=== PATIENT | male | born 1945 | race Caucasian/White ===

== ENCOUNTER 2022-01-13 10:55 | Day surgery (SDC) | payer MEDICARE, SELFPAY ==
[2022-01-13] VITALS (24 sets, daily range): BP systolic 101–150; BP diastolic 39–88; PULSE 53–70; RESP 12–56; TEMP 35.8–37.7; O2SAT 92–100; BMI 33.5
--- NOTE | 2022-01-13 11:27 | CRLHL7_ITS ---
For Patients: As a result of the Cures Act, medical imaging exams and procedure reports are released immediately into your electronic medical record. You may view this report before your referring provider. If you have questions, please contact your health care provider. Indication: Postop. Technique: Right knee, 2 views. Comparison: None. Findings: Bones: Postsurgical changes from total right knee arthroplasty. The orthopedic hardware appears to be in normal alignment, without evidence of hardware fracture.. Joint spaces: Gas and fluid within the joint space, expected in postoperative setting.. Soft tissues: Soft tissue swelling surrounding the knee.. Impression: Expected postsurgical changes from total right knee arthroplasty. Orthopedic hardware appears to be in normal alignment. Dictated by Paty Diamond MD @ 01/13/2022 3:50:28 PM (Electronically Signed)
[2022-01-13] MEDS: OXYCODONE (CR) 10 MG TAB.ER.12H PO (11:45)
[2022-01-13] MEDS: ACETAMINOPHEN 500 MG TABLET 1000 MG PO ×2 (11:45→18:17)
[2022-01-13] MEDS: CELECOXIB 200 MG CAPSULE PO ×2 (11:45→21:16)
[2022-01-13] MEDS: LACTATED RINGERS 1000 ML 1,000 ML 100 ML IV ×2 (12:00→13:00)
[2022-01-13] MEDS: MIDAZOLAM HCL 1 MG/ML inj IVP (12:01)
[2022-01-13] MEDS: fentaNYL 100 MCG/2 ML inj IVP (12:01)
--- NOTE | 2022-01-13 12:04 | SUR.PREOP ---
TIME?OUT:?1200 PT/RN/MDA?VERIFICATION?OF?SURGICAL?SITE,?PROCEDURE,?AND?CONSENT OBTAINED?PRIOR?TO?INVASIVE?PROCEDURE. all in agreement.
--- NOTE | 2022-01-13 12:11 | P.NB_ITS ---
Nerve Block Nerve Block Time Seen by Provider: 12:00 Date Seen: 01/13/22 Type of block requested by surgeon for post-operative analgesia: geniculars Side: right Time out performed: Yes Verification of patient name: Yes Verification of date of : Yes Site marking: site marked Name of person performing procedure: Conner Continuous monitoring Was continuous monitoring of O2 sat, B/P, it technical architect, recorded every 15 minutes?: Yes Procedure Checklist: sterile prep, needles and gloves Medications given in 5ml increments after negative aspiration: Ropivicaine %: 0.5 mL: 9 Needle gauge: 25 Patient tolerated procedure well: Yes
--- NOTE | 2022-01-13 12:11 | W.PM.NB ---
Nerve Block Nerve Block Time Seen by Provider: 12:00 Type of block requested by surgeon for post-operative analgesia: adductor canal Side: right Time out performed: Yes Verification of patient name: Yes Verification of date of : Yes Site marking: site marked Name of person performing procedure: Conner Assistants, if any: Shelbymbemeli Continuous monitoring Was continuous monitoring of O2 sat, B/P, threat monitoring analyst, recorded every 15 minutes?: Yes Procedure Checklist: sterile prep, needles and gloves Ultrasound guided. Images saved: Yes Medications given in 5ml increments after negative aspiration: Ropivicaine %: 0.5 mL: 20 Needle gauge: 22 Decadron (mg): 10 Precedex (mcg): 25 Patient tolerated procedure well: Yes Additional comments: Needle noted adjacent to nerve
[2022-01-13] MEDS: CEFAZOLIN 2 GM INJ IVP (12:49)
--- NOTE | 2022-01-13 14:12 | P.ORPRC_ITS ---
Procedure Note Procedure: PREOPERATIVE DIAGNOSIS: 1. Right knee osteoarthritis, primary, severe POSTOPERATIVE DIAGNOSIS: 1. Right knee osteoarthritis, primary, severe PROCEDURE: 1. Right total knee arthroplasty SURGEON: George Cabello MD. MARKETING OFFICER: Maurice Downey PA-C - Of note, a skilled assistant professor of dietetics was critical for this case to aid in patient positioning, tissue retraction, limb manipulation/positioning, and closure. ANESTHESIA: Spinal anesthetic IMPLANTS: DePuy J&J all cemented TKA - Attune PS femur size 7, size 5 tibia, 5 mm poly spacer, 30 mm patella TOURNIQUET: 90 min at 300 torr EBL: 50 ml COMPLICATIONS: None evident INDICATIONS: The patient is a pleasant 76-year-old male who has experienced severe right knee pain and difficulty bearing weight. Workup included x-rays which revealed severe osteoarthrosis in the knee. Given the deformity, the dysfunction, and the pain, as well as the failure of nonoperative management, recommendation was made for surgery. FINDINGS: Small effusion upon entering joint. Full-thickness chondral loss medial compartment broadly. Substantial chondromalacia patellofemoral and lateral compartments as well. Tricompartmental osteophytes. 1 medium 10 mm loose body seen within the lateral gutter. DESCRIPTION OF PROCEDURE: Following a thorough discussion of risks, benefits, and alternatives consent was obtained and the right knee was marked. The patient was brought to the operating room and placed supine on the operating table. Induction of anesthesia was undertaken. 2 g IV Ancef and 1 g tranexamic acid was administered within 1 hr of incision preoperatively. Proper time-out was performed identifying proper patient, site, procedure. The operative extremity was prepped and draped in the appropriate sterile fashion using ChloraPrep after the patient was positioned supine with all bony prominences well padded. A longitudinal, anterior, midline skin incision was made starting approximately 3cm proximal to the superior pole of the patella and advanced distal to the tibial tubercle. A median parapatellar arthrotomy was created. A medial subperiosteal sleeve was created with knife, chang elevator and curved osteotome. The retropatellar fatpad was resected and the synovium in the suprapatellar pouch excised to visualize the anterior femoral cortex. Femoral preparation was performed via an intramedullary guide. Step drill allowed access into the femoral canal. The distal cutting guide was placed with 5? of valgus and 11 mm cut on the distal femur due to mild to moderate flexion contracture Femur was sized using a posterior referencing guide in 3? of external rotation. This found have a best fit with the sizing noted above. The 4 in 1 cutting block was then placed, and the distal femur shaped accordingly. The box cut was then created and the trial implant inserted to confirm appropri ate fit. We turned our attention to the proximal tibia. Extramedullary guide was utilized for cutting with the goal of being 90 degree cut from the mechanical axis of the tibia in the varus/valgus plane utilizing tibial crest as the primary alignment. Initially a 2 mm resection was performed from the medial tibial plateau. Ultimately, balancing was achieved in both flexion and extension in both varus and valgus. The knee was able to achieve full extension as well comfortably. The patella was initially measured and found have a thickness of 24 mm. It was resected back to approximately 14 mm. It was sized to be a best fit with as noted above. This was drilled, trial placed. All trials were placed and found to have an excellent stability and balance. At this stage, trial implants were removed, the knee was thoroughly irrigated with normal saline, and the cement was mixed. After irrigation, the knee was thoroughly dried, and cement placed, with the real tibial and femoral implants placed along with the patella. Trial poly spacer was placed and confirmed to have excellent range of motion and full extension, and the real poly spacer opened and inserted. All extra cement was removed, and a 3 min Betadine soak performed. Finally, a final irrigation round with normal saline was performed. Closure performed with 0 Vicryl and #0 Stratafix for the quad tendon/retinaculum. 2-0 Vicryl for the subcutaneous and 4-0 Stratafix for subcuticular closure. Dressings were applied and the patient was awoken from anesthesia after the tourniquet deflated and transferred the PACU in stable condition. A skilled assistant professor of dietetics was critical for this case to aid in patient positioning, tissue retraction, bone exposure, limb manipulation/positioning, patient safety, and closure. PLAN: 1. Weight bear as tolerated operative extremity. 2. 23 hr perioperative antibiotics. 3. Ice. 4. PT/OT consults for ambulation assistance/mobility education. 5. Social work consult for discharge planning. 6. DVT prophylaxis with at SCDs, Jared Hose, and aspirin twice daily. Anesthesia: spinal Surgeon: George Cabello Teacher Adventure Education: Maurice Downey
--- NOTE | 2022-01-13 14:14 | P.ANBPRC_ITS ---
PFSH PFS Medical History Coronary artery disease without angina pectoris Hyperlipidemia Hypertension Post-traumatic osteoarthritis of right knee Surgical History (Updated 01/12/22 @ 08:50 by Rosalba Jensen CMA) H/O heart artery stent (~1999) Social History (Updated 01/12/22 @ 08:51 by Rosalba Jensen CMA) Smoking Status: Former smoker Do you use any of these nicotine containing products: None Second hand tobacco smoke exposure: No How often do you have a drink containing alcohol: 2-4 times a month AUDIT-C Alcohol total score: 2 Non-prescribed substance use: denies use Meds Home Medications and Allergies Home Medications Medication Instructions Recorded Confirmed Type atenolol 25 mg tablet 25 mg PO DAILY tab 01/11/22 01/13/22 History atorvastatin 40 mg tablet 40 mg PO HS tab 01/11/22 01/13/22 History lisinopril 10 mg tablet 10 mg PO DAILY tab 01/11/22 01/13/22 History Allergies Allergy/AdvReac Type Severity Reaction Status Date / Time No Known Allergies Allergy Unknown Verified 01/12/22 08:48 Results Vital Signs Vital Signs: Last Vital Signs Temp 99.8 F H 01/13/22 12:00 Pulse 57 L 01/13/22 12:10 Resp 14 01/13/22 12:10 BP 115/69 01/13/22 12:10 Pulse Ox 98 01/13/22 12:10 Weight: 98 kg Height: 171 cm Anesthesia Procedures Airway Urgency: emergent AUTOMATIC PUNCH PRESS OPERATOR: Romina Preanesthetic Checklist: IV checked and monitors and equipment checked Sedation Level: deep Preoxygenated: Yes Mask Difficulty Assessment: 1 - vent by mask Final Airway Type: endotracheal airway Dentition Unchanged: Yes
--- NOTE | 2022-01-13 14:18 | P.ANBPRC_ITS ---
PFSH PFS Medical History Coronary artery disease without angina pectoris Hyperlipidemia Hypertension Post-traumatic osteoarthritis of right knee Surgical History (Updated 01/12/22 @ 08:50 by Rosalba Jensen CMA) H/O heart artery stent (~1999) Social History (Updated 01/12/22 @ 08:51 by Rosalba Jensen CMA) Smoking Status: Former smoker Do you use any of these nicotine containing products: None Second hand tobacco smoke exposure: No How often do you have a drink containing alcohol: 2-4 times a month AUDIT-C Alcohol total score: 2 Non-prescribed substance use: denies use Meds Home Medications and Allergies Home Medications Medication Instructions Recorded Confirmed Type atenolol 25 mg tablet 25 mg PO DAILY tab 01/11/22 01/13/22 History atorvastatin 40 mg tablet 40 mg PO HS tab 01/11/22 01/13/22 History lisinopril 10 mg tablet 10 mg PO DAILY tab 01/11/22 01/13/22 History Allergies Allergy/AdvReac Type Severity Reaction Status Date / Time No Known Allergies Allergy Unknown Verified 01/12/22 08:48 Results Vital Signs Vital Signs: Last Vital Signs Temp 99.8 F H 01/13/22 12:00 Pulse 57 L 01/13/22 12:10 Resp 14 01/13/22 12:10 BP 115/69 01/13/22 12:10 Pulse Ox 98 01/13/22 12:10 Weight: 98 kg Height: 171 cm Anesthesia Procedures Airway Urgency: emergent SPECIAL EDUCATION INCLUSION TEACHER: Romina Preanesthetic Checklist: IV checked and monitors and equipment checked Sedation Level: deep Preoxygenated: Yes Mask Difficulty Assessment: 1 - vent by mask Final Airway Type: endotracheal airway
--- NOTE | 2022-01-13 15:12 | W.ANESCHARGE ---
Anesthesia Charges Start Date/Time Anesthesia Start Date: 01/13/22 Anesthesia Start Time: 12:34 Stop Date/Time Anesthesia Stop Date: 01/13/22 Anesthesia Stop Time: 15:09 Summary Emergency: No Extremes of Age: Over 71-CPT 05357
[2022-01-13] MEDS: LACTATED RINGERS 1000 ML 1,000 ML 75 ML IV ×2 (15:54→23:14)
--- NOTE | 2022-01-13 16:01 | PM.IMCN1 ---
Date of Consult Consult date: 01/13/22 Requesting Physician: Orthopedics Primary Care Provider: Shabbir Hastings MD Consult Narrative Reason for consult: Medical management of comorbidities Narrative: Bob Truong is a 76 year old male who presented to the hospital for a right TKA. There were no operative or anesthetic complications during procedure. Hospitalist team was consulted given patient's comorbidities of coronary artery disease (PTCA LAD in 1999), hyperlipidemia, and essential hypertension. Patient was seen by his PCP, Dr. Nia Greco, without any concerns noted on preoperative exam. He also follows with cardiology at the [facility]. Last TTE performed July of 2021: Normal LV size with severe basal septal hypertrophy, EF 55%, mid-distal anteroseptal, distal anterior, and apical segments abnormal (unchanged from previous TTE). Patient denies chest pain or dyspnea. No history of blood clots. Bob lives independently near [place] with his , who will be his primary caregiver postoperatively. He is retired. He is a former smoker, quit approximately 30 years ago. He drinks alcohol 3-4 nights a week, no history of withdrawal. Review of Systems Status of ROS: Reports: 10 or more systems reviewed and unremarkable except as noted in History and below PFSH PFS Medical History (Updated 01/13/22 @ 16:07 by Olivia Kenney MD) Coronary artery disease without angina pectoris Hyperlipidemia Hypertension Post-traumatic osteoarthritis of right knee Surgical History (Updated 01/12/22 @ 08:50 by Rosalba Jensen CMA) H/O heart artery stent (~1999) Social History (Updated 01/12/22 @ 08:51 by Rosalba Jensen CMA) Smoking Status: Former smoker Do you use any of these nicotine containing products: None Second hand tobacco smoke exposure: No How often do you have a drink containing alcohol: 2-4 times a month AUDIT-C Alcohol total score: 2 Non-prescribed substance use: denies use Meds Home Medications and Allergies Home Medications Medication Instructions Recorded Confirmed Type atenolol 25 mg tablet 25 mg PO DAILY tab 01/11/22 01/13/22 History atorvastatin 40 mg tablet 40 mg PO HS tab 01/11/22 01/13/22 History lisinopril 10 mg tablet 10 mg PO DAILY tab 01/11/22 01/13/22 History Home Medication Comments: Patient also on a daily aspirin, stopped this 1 week ago. Allergies Allergy/AdvReac Type Severity Reaction Status Date / Time No Known Allergies Allergy Unknown Verified 01/12/22 08:48 Exam Narrative: Exam Narrative: GEN: Alert and oriented, laying comfortably in bed and answering questions appropriately HEENT: Normal external ears, EOMIs bilaterally, no scleral icterus CV: RRR, No concerning murmurs, rubs, or gallops R: LCTA bilaterally without concerning wheezing, rales, or rhonchi Ext: wwp, no concerning edema Skin: No concerning skin lesions or rashes on exposed skin Neuro: Nonfocal Psych: Appropriate Const: Vital Signs, click to edit/add: Vital Signs - 24 hr 01/13/22 12:00 01/13/22 12:04 01/13/22 12:10 Temperature 99.8 F H Pulse Rate 60 63 57 L Respiratory Rate 16 14 14 Blood Pressure 142/79 H 117/77 115/69 Pulse Oximetry 95 98 98 01/13/22 15:11 01/13/22 15:16 01/13/22 15:21 Temperature 98.0 F Pulse Rate 53 L 61 60 Respiratory Rate 12 12 16 Blood Pressure 101/59 L 107/70 108/74 Pulse Oximetry 98 94 01/13/22 15:26 01/13/22 15:31 01/13/22 15:36 Temperature 97.2 F L Pulse Rate 59 L 57 L 57 L Respiratory Rate 16 16 16 Blood Pressure 109/75 114/71 111/71 Pulse Oximetry 94 Assessment and Plan Assessment and plan (1) Osteoarthritis of right knee: Status: Acute Plan Continue home medications and routine outpatient follow-up. Pain management and prophylaxis per Orthopedic surgery team. Anticipate routine postoperative cares and course.
[2022-01-13] MEDS: OXYCODONE 5 MG TABLET PO ×3 (18:17→21:16)
--- NOTE | 2022-01-13 18:45 | PC.NURSE ---
Shift Summary: Patient pleasant and cooperative. Arrived to floor @ 1545. Alert and oriented. Tolerating regular diet, denies nausea. Vitals have been stable and WNL. Dressing over right knee dry and intact with cryocuff on. Lung sounds clear. Rates pain 2-3/10, given PRN oxycodone and scheduled Tylenol. Has not been up out of bed yet, informed of expectations and 6-hour goals.
[2022-01-13] MEDS: CEFAZOLIN 2 GM in 0.9 % SODIUM CHLORIDE Mini-bag 100 ML IVPB (19:01)
[2022-01-13] MEDS: ASPIRIN 81 MG TABLET EC PO (21:16)
[2022-01-13] MEDS: ATORVASTATIN CALCIUM 40 MG TABLET PO (21:17)
[2022-01-13] MEDS: SENNOSIDES 1 TAB TABLET 2 TAB PO (21:17)
--- NOTE | 2022-01-13 22:54 | PC.NURSE ---
19-23: Pain states mild tolerable with oxycodone, able to ambulate to br w walker, tolerated well, only voided 100cc but scanned bladder for 292cc thus will hold off on bolus and recheck in 4 hours. VSS on RA. Po adeq.
[2022-01-14] MEDS: ACETAMINOPHEN 500 MG TABLET 1000 MG PO ×2 (00:02→08:12)
[2022-01-14 03:00] VITALS: BP 109/76; PULSE 88; RESP 16; TEMP 36.8; O2SAT 95
[2022-01-14] MEDS: CEFAZOLIN 2 GM in 0.9 % SODIUM CHLORIDE Mini-bag 100 ML IVPB (03:05)
[2022-01-14] MEDS: OXYCODONE 5 MG TABLET PO (03:10)
--- NOTE | 2022-01-14 05:02 | PC.NURSE ---
Shift Note : Pt pleasant and cooperative, VSS, afebrile, LS clear, BS active, minimal swelling in right knee. Pt up to BR with walker, gait belt and SBA. Pt displays limping gait but states that he feels stable, denies stiffness and rates pain mildly. See eMAR for medication administration.
--- NOTE | 2022-01-14 06:54 | W.ANESCHARGE ---
Anesthesia Charges Start Date/Time Anesthesia Start Date: 01/13/22 Anesthesia Start Time: 12:34 Stop Date/Time Anesthesia Stop Date: 01/13/22 Anesthesia Stop Time: 15:09 Summary Emergency: No Extremes of Age: Over 71-CPT 98520
[2022-01-14 07:00] VITALS: BP 114/78; PULSE 82; RESP 16; TEMP 36.9; O2SAT 94
[2022-01-14 07:29] LABS: Basophils Percent Auto 0.1 % (0.0-3.0); Hematocrit 39.3 % (37.0-53.0); Hemoglobin* 13.2 gm/dL (13.5-17.5); Immature Granulocytes Abs Auto 0.02 K/uL (0.00-0.30); Lymphocytes Percent Auto 11.2 % (20-44); Mean Corpuscular HGB Conc 34 gm/dL (32-36); Mean Corpuscular Hemoglobin 33 pg (26-34); Mean Corpuscular Volume 99 fL (80-100); Monocytes Percent Auto 5.9 % (0.0-11.0); Neutrophils Percent Auto 82.6 % (42.0-72.0); Platelet Count* 155 K/uL (140-440); RDW Coefficient of Variation % 12.4 % (11.5-15.5); Red Blood Count 3.97 m/uL (4.30-5.90); White Blood Count* 11.85 K/uL (4.50-11.00)
[2022-01-14 07:32] LABS: Slide Review Reflex No
[2022-01-14 07:45] LABS: INR 1.14 (0.91-1.10)
[2022-01-14 07:52] LABS: Chloride* 107 mmol/L (96-114); Potassium* 4.1 mmol/L (3.6-5.1); Sodium* 137 mmol/L (135-149)
[2022-01-14 07:55] LABS: Blood Urea Nitrogen* 25 mg/dL (7-30); Calcium* 8.7 mg/dL (8.4-10.6); Carbon Dioxide* 22 mmol/L (20-32); Creatinine* 0.8 mg/dL (0.5-1.5); Est. Creatinine Clearance* 59.67; Estimated Glomerular Filt Rate 92.29; Glucose* 166 mg/dL (60-115)
[2022-01-14] MEDS: atenoloL 25 MG TABLET PO (08:11)
[2022-01-14] MEDS: CELECOXIB 200 MG CAPSULE PO (08:11)
[2022-01-14] MEDS: ASPIRIN 81 MG TABLET EC PO (08:13)
--- NOTE | 2022-01-14 10:06 | P.DS_ITS ---
DS: Providers Provider Time Seen by Provider: 10:06 Date Seen: 01/14/22 Primary care physician: Shabbir Hastings MD Admitting Clinician: George Cabello MD Consults: 01/13/22 15:38 Consult to Occupational Therapy [CONS] Routine Comment: See nursing Activity Order Reason(s) for OT Consult:: Evaluate and Treat Any Restrictions?:: No Restrictions Consult to Physical Therapy [CONS] Routine Comment: Ambulate in the watts today. Reason(s) for PT Consult:: Evaluate and Treat Any Restrictions?:: No Restrictions Consult to Physician [CONS] Routine Comment: Consulting Provider: Hospitalists Has provider been notified: No Consult to Sandwich Maker [CONS] Routine Comment: Reason for Consult:: Discharge Planning Needs Attending Physician on discharge: George Cabello MD DS: Summary Hospital Course Hospital Course: Patient admitted to the hospital for right TKA on 01/13/2022. Hospitalist team followed peripherally given patient's comorbidities of coronary artery disease, hypertension, and hyperlipidemia. Patient did well postoperatively without any concerns. Tolerated PT and OT well, will be discharging home with . Routine discharge follow-up with therapy, Orthopedic surgery, and PCP for above-mentioned comorbidities. Time Spent with Patient Time attestation: Total time spent providing and/or coordinating discharge services: Time spent: Less than 30 minutes Exam Narrative: Exam Narrative: GEN: Alert and oriented, eating breakfast and sitting comfortably in bedside chair HEENT: Normal external ears, EOMIs bilaterally, no scleral icterus CV: RRR, No concerning murmurs, rubs, or gallops R: LCTA bilaterally without concerning wheezing, rales, or rhonchi Ext: wwp, no concerning edema Skin: No concerning skin lesions or rashes on exposed skin Neuro: Nonfocal Psych: Appropriate Const: Vital Signs, click to edit/add: Vital Signs - 24 hr 01/13/22 12:00 01/13/22 12:04 01/13/22 12:10 Temperature 99.8 F H Pulse Rate 60 63 57 L Pulse Rate [Pulse Oximeter] Respiratory Rate 16 14 14 Blood Pressure 142/79 H 117/77 115/69 Blood Pressure [Ri ght Arm] Pulse Oximetry 95 98 98 01/13/22 15:11 01/13/22 15:16 01/13/22 15:21 Temperature 98.0 F Pulse Rate 53 L 61 60 Pulse Rate [Pulse Oximeter] Respiratory Rate 12 12 16 Blood Pressure 101/59 L 107/70 108/74 Blood Pressure [Ri ght Arm] Pulse Oximetry 98 94 01/13/22 15:26 01/13/22 15:31 01/13/22 15:36 Temperature 97.2 F L Pulse Rate 59 L 57 L 57 L Pulse Rate [Pulse Oximeter] Respiratory Rate 16 16 16 Blood Pressure 109/75 114/71 111/71 Blood Pressure [Ri ght Arm] Pulse Oximetry 94 01/13/22 15:45 01/13/22 16:04 01/13/22 16:09 Temperature 96.5 F L 96.5 F L 96.5 F L Pulse Rate 55 L 55 L Pulse Rate [Pulse Oximeter] 53 L Respiratory Rate 16 16 16 Blood Pressure Blood Pressure [Ri ght Arm] 116/80 123/71 116/80 Pulse Oximetry 93 01/13/22 16:15 01/13/22 16:30 01/13/22 16:41 Temperature 96.5 F L 96.7 F L Pulse Rate Pulse Rate [Pulse Oximeter] 54 L 56 L Respiratory Rate 16 18 16 Blood Pressure Blood Pressure [Ri ght Arm] 127/75 120/80 Pulse Oximetry 94 92 93 01/13/22 16:45 01/13/22 17:00 01/13/22 17:30 Temperature 96.4 F L 96.7 F L 97.2 F L Pulse Rate Pulse Rate [Pulse Oximeter] 57 L 63 56 L Respiratory Rate 18 18 56 H Blood Pressure Blood Pressure [Ri ght Arm] 122/76 124/82 131/81 Pulse Oximetry 100 99 100 01/13/22 18:43 01/13/22 19:38 01/13/22 19:40 Temperature 97.1 F L 98 F 98 F Pulse Rate Pulse Rate [Pulse Oximeter] 58 L 66 66 Respiratory Rate 18 18 18 Blood Pressure Blood Pressure [Ri ght Arm] 125/71 129/39 L 129/39 L Pulse Oximetry 94 94 94 01/13/22 20:16 01/13/22 21:16 01/13/22 23:00 Temperature 98 F 98.1 F 98.2 F Pulse Rate Pulse Rate [Pulse Oximeter] 67 70 70 Respiratory Rate 18 18 16 Blood Pressure Blood Pressure [Ri ght Arm] 132/77 150/88 H 117/82 Pulse Oximetry 95 93 01/14/22 03:00 Temperature 98.2 F Pulse Rate Pulse Rate [Pulse Oximeter] 88 Respiratory Rate 16 Blood Pressure Blood Pressure [Ri ght Arm] 109/76 Pulse Oximetry 95 DS: Data Data Completed and Pending Labs on day of discharge: Labs from last 24 hours 01/14/22 01/14/22 01/14/22 06:57 06:57 06:57 WBC 11.85 H RBC 3.97 L Hgb 13.2 L Hct 39.3 MCV 99 MCH 33 MCHC 34 RDW Coeff of Daylin 12.4 Plt Count 155 Neut % (Auto) 82.6 H Lymph % (Auto) 11.2 L Mason % (Auto) 5.9 Eos % (Auto) 0.0 Baso % (Auto) 0.1 Neut # (Auto) 9.80 H Lymph # (Auto) 1.30 Mason # (Auto) 0.70 Eos # (Auto) 0.00 Baso # (Auto) 0.00 Abs Immat Gran (auto) 0.02 INR 1.14 H Sodium 137 Potassium 4.1 Chloride 107 Carbon Dioxide 22 BUN 25 Creatinine 0.8 Estimated Creat Clear 59.67 Glucose 166 H Calcium 8.7 Discharge Plan Discharge Disposition: Home, Self-Care Discharging Surgeon: Maurice Downey Follow-Up Appointment: per ortho Prescriptions: New oxycodone 5 mg tablet 2.5 - 5 mg PO Q4-6H MDD 6 PRN (Reason: pain) Qty: 42 0RF Rx Instructions: Take as needed for pain: 2.5mg mild pain, 5mg moderate-severe pain. Wean as tolerated. acetaminophen 500 mg capsule 500 - 1,000 mg PO Q6H MDD 4000mg PRNQty: 100 0RF aspirin 81 mg tablet,delayed release (DR/EC) 81 mg PO BID Qty: 60 0RF celecoxib 200 mg capsule 200 mg PO BID Qty: 60 0RF sennosides-docusate sodium [Senna-S] 8.6-50 mg tablet 1 - 4 tab-cap PO BID PRN (Reason: constipation) Qty: 60 0RF Rx Instructions: Hold medication if experiencing loose stools. No Action lisinopril 10 mg tablet 10 mg PO DAILY 0RF atenolol 25 mg tablet 25 mg PO DAILY 0RF atorvastatin 40 mg tablet 40 mg PO HS 0RF Activity Level: No Restrictions, Weight Bearing as Tolerated, Use Cane and Use Walker Activity Detail: Wound: ?Do not remove original dressing; we will remove this at first postop visit in 1 week. Only remove dressing if integrity is in question. ?No immersing wound in water; showering okay; light scrub with your hand and body soap, rinse, dab dry ?Sutures are under the skin, will dissolve; allow surgical glue to come off naturally; do not scrub the wound or apply ointments/lotions ?Call our office with any redness that streaks, excessive drainage from the wound, or wound gapping. Ice/Elevate: ?Ice as needed for swelling and discomfort (cryocuff or ice pack); elevate frequently above the heart PROSPER socks: ?Wear for 1 month, remove for 1 hour 3 times per day ?These are frustrating to take on/off, but are important for blood clot prevention for 1 month after surgery Blood Clot Prevention (DVT): ?Medication: 81 mg aspirin by mouth twice daily Driving: ?Do not drive while taking narcotic pain medication ?Anticipate 4-6 weeks no driving if operative leg is driving leg Dental: ?No elective dental work for 6 months post-op. If there is an urgent/emergent dental need, contact our office for an antibiotic prescription. Smoking/Alcohol: ?Do not smoke; do no drink alcohol especially when taking postoperative oral narcotic medication Seek Care from you Primary Care Provider if you experience the following issues in the postoperative phase and beyond: ?Bacterial infections such as: pneumonia, bacterial skin infection (cellulitis), UTI, high fever, chills unrelated to the operative body part - call your primary care physician urgently for treatment in hopes to protect your health and the metal implant. Referrals: ?PT, OT per patient preference - evaluate treat total right knee arthroplasty protocol (the training, ROM, ADLs, knee-high Prosper socks) Follow up: ?Ortho surgeon follow-up in 6 weeks; repeat radiographs three views right knee ?PA-C visit in 1 week *If there are any acute concerns regarding your surgery, please call our orthopedic clinic ([phone]) Discharge Diet: Regular Patient Instructions: Surgical Site Infections (DC) Forms: Work/Release Restrictions Follow-up: [facility] [Other] - 01/15/22 1:45 pm Shabbir Hastings MD [Primary Care Provider] - Maurice Downey PA-C [Physician Aircraft Servicer] - 01/19/22 1:00 pm ([facility]) Discharge Orders: Discharge Order (Routine); Ordered 01/14/22 Ordered By: Olivia Kenney
--- NOTE | 2022-01-14 11:45 | PC.NURSE ---
pt d/c at 1128 via w/c accompanied by . d/c paperwork reviewed and signed. all questions answered. pts pain well managed and pt is tolerating ambulation well. IV removed and cath in place.
--- NOTE | 2022-01-14 16:52 | PM.ORPN ---
Subjective Subjective Date Seen: 01/14/22 Principal diagnosis: Status postop day 1 right total knee arthroplasty Interval history: Patient reports doing well. No acute events over night. Pain is minimal and managed with scheduled /PRN medications and ice. DVT prophylaxis 81 mg aspirin by mouth twice daily, bilateral knee high Jared stockings, and SCDs. Denies fevers, chills, aches, N/V, CP, SOB/PITTS, tachycardia, or lightheadedness. Ortho Exam Narrative Exam Narrative: -Patient appears comfortable in bed; no apparent acute distress -Alert and oriented times 3 -Operative knee swollen; soft tissues supple; no obvious erythema. Ecchymosis minimal. Warmth appropriate -Surgical dressing clean, dry, intact; no obvious drainage, no erythematous streaking peripheral to the bandage -bilateral calves soft, nontender; no significant swelling, edema, tenderness, erythema, discoloration, warmth, or palpable cords -2+ DP/PT pulses, intact dermatomes and myotomes distally (5/5 strength) Const Vital Signs, click to edit/add: Vital Signs - 24 hr 01/13/22 17:00 01/13/22 17:30 01/13/22 18:43 Temperature 96.7 F L 97.2 F L 97.1 F L Pulse Rate [Pulse Oximeter] 63 56 L 58 L Respiratory Rate 18 56 H 18 Blood Pressure [Right Arm] 124/82 131/81 125/71 Pulse Oximetry 99 100 94 01/13/22 19:38 01/13/22 19:40 01/13/22 20:16 Temperature 98 F 98 F 98 F Pulse Rate [Pulse Oximeter] 66 66 67 Respiratory Rate 18 18 18 Blood Pressure [Right Arm] 129/39 L 129/39 L 132/77 Pulse Oximetry 94 94 01/13/22 21:16 01/13/22 23:00 01/14/22 03:00 Temperature 98.1 F 98.2 F 98.2 F Pulse Rate [Pulse Oximeter] 70 70 88 Respiratory Rate 18 16 16 Blood Pressure [Right Arm] 150/88 H 117/82 109/76 Pulse Oximetry 95 93 95 01/14/22 07:00 Temperature 98.4 F Pulse Rate [Pulse Oximeter] 82 Respiratory Rate 16 Blood Pressure [Right Arm] 114/78 Pulse Oximetry 94 Assessment and Plan Assessment and plan (1) Osteoarthritis of right knee: Problem details: 1. POD 1 Right Total Knee Arthroplasty 2. Acute blood loss anemia, surgically related (hgb 13.2 - asymptomatic) Status: Acute Plan - Complete 23 hour perioperative antibiotics. - PT/OT consult for education and assistance. - Social work consult for discharge planning - Prescribed analgesics as needed - DVT prophylaxis: 81 mg aspirin by mouth twice daily, bilateral knee high Jared Hose stockings and SCDs - Anticipation is for discharge to home with spouse 01/14/2022 if the patient remains medically stable, pain is controlled, and they are safe with mobilization.
--- NOTE | 2022-01-14 16:55 | PM.DS1 ---
DS: Providers Provider Date Seen: 01/14/22 Date of admission: Med surg recovery 01/13/2022 Primary care physician: Shabbir Hastings MD Consults: 01/13/22 15:38 Consult to Occupational Therapy [CONS] Routine Comment: See nursing Activity Order Reason(s) for OT Consult:: Evaluate and Treat Any Restrictions?:: No Restrictions Consult to Physical Therapy [CONS] Routine Comment: Ambulate in the watts today. Reason(s) for PT Consult:: Evaluate and Treat Any Restrictions?:: No Restrictions Consult to Physician [CONS] Routine Comment: Consulting Provider: Hospitalists Has provider been notified: No Consult to Commodity Loan Clerk [CONS] Routine Comment: Reason for Consult:: Discharge Planning Needs Attending Physician on discharge: George Cabello MD Date of Discharge: 01/14/22 DS: Diagnosis Discharge Diagnosis (1) Osteoarthritis of right knee: Status: Acute Problem details: 1. POD 1 Right Total Knee Arthroplasty 2. Acute blood loss anemia, surgically related (hgb 13.2 - asymptomatic) DS: Summary Hospital Course Hospital Course: Patient admitted to the hospital for right TKA on 01/13/2022. Hospitalist team followed peripherally given patient's comorbidities of coronary artery disease, hypertension, and hyperlipidemia. Patient did well postoperatively without any concerns. Tolerated PT and OT well, will be discharging home with . Routine discharge follow-up with therapy, Orthopedic surgery, and PCP for above-mentioned comorbidities. The patient has a history of right knee osteoarthritis, primary, severe. After appropriate preoperative evaluation, the patient underwent right total knee arthroplasty. Postoperatively given anticoagulation for deep vein thrombosis prophylaxis. They progressed to PT/OT and were felt ready and prepared for discharged to home with appropriate pain medication and anticoagulation medications. Status at Discharge Functional status at discharge: uses cane/walker Overall status at discharge: patient is progressing back to baseline Time Spent with Patient Time attestation: Total time spent providing and/or coordinating discharge services: Time spent: Less than 30 minutes Exam Const: Vital Signs, click to edit/add: Vital Signs - 24 hr 01/13/22 17:00 01/13/22 17:30 01/13/22 18:43 Temperature 96.7 F L 97.2 F L 97.1 F L Pulse Rate [Pulse Oximeter] 63 56 L 58 L Respiratory Rate 18 56 H 18 Blood Pressure [Ri ght Arm] 124/82 131/81 125/71 Pulse Oximetry 99 100 94 01/13/22 19:38 01/13/22 19:40 01/13/22 20:16 Temperature 98 F 98 F 98 F Pulse Rate [Pulse Oximeter] 66 66 67 Respiratory Rate 18 18 18 Blood Pressure [Ri ght Arm] 129/39 L 129/39 L 132/77 Pulse Oximetry 94 94 01/13/22 21:16 01/13/22 23:00 01/14/22 03:00 Temperature 98.1 F 98.2 F 98.2 F Pulse Rate [Pulse Oximeter] 70 70 88 Respiratory Rate 18 16 16 Blood Pressure [Ri ght Arm] 150/88 H 117/82 109/76 Pulse Oximetry 95 93 95 01/14/22 07:00 Temperature 98.4 F Pulse Rate [Pulse Oximeter] 82 Respiratory Rate 16 Blood Pressure [Ri ght Arm] 114/78 Pulse Oximetry 94 DS: Data Data Completed and Pending Labs on day of discharge: Labs from last 24 hours 01/14/22 01/14/22 01/14/22 06:57 06:57 06:57 WBC 11.85 H RBC 3.97 L Hgb 13.2 L Hct 39.3 MCV 99 MCH 33 MCHC 34 RDW Coeff of Daylin 12.4 Plt Count 155 Neut % (Auto) 82.6 H Lymph % (Auto) 11.2 L Kay % (Auto) 5.9 Eos % (Auto) 0.0 Baso % (Auto) 0.1 Neut # (Auto) 9.80 H Lymph # (Auto) 1.30 Kay # (Auto) 0.70 Eos # (Auto) 0.00 Baso # (Auto) 0.00 Abs Immat Gran (auto) 0.02 INR 1.14 H Sodium 137 Potassium 4.1 Chloride 107 Carbon Dioxide 22 BUN 25 Creatinine 0.8 Estimated Creat Clear 59.67 Glucose 166 H Calcium 8.7 Discharge Plan Discharge Disposition: Home, Self-Care Discharging Surgeon: Maurice Downey Follow-Up Appointment: per ortho Prescriptions: New oxycodone 5 mg tablet 2.5 - 5 mg PO Q4-6H MDD 6 PRN (Reason: pain) Qty: 42 0RF Rx Instructions: Take as needed for pain: 2.5mg mild pain, 5mg moderate-severe pain. Wean as tolerated. acetaminophen 500 mg capsule 500 - 1,000 mg PO Q6H MDD 4000mg PRNQty: 100 0RF aspirin 81 mg tablet,delayed release (DR/EC) 81 mg PO BID Qty: 60 0RF celecoxib 200 mg capsule 200 mg PO BID Qty: 60 0RF sennosides-docusate sodium [Senna-S] 8.6-50 mg tablet 1 - 4 tab-cap PO BID PRN (Reason: constipation) Qty: 60 0RF Rx Instructions: Hold medication if experiencing loose stools. No Action lisinopril 10 mg tablet 10 mg PO DAILY 0RF atenolol 25 mg tablet 25 mg PO DAILY 0RF atorvastatin 40 mg tablet 40 mg PO HS 0RF Activity Level: No Restrictions, Weight Bearing as Tolerated, Use Cane and Use Walker Activity Detail: Wound: ?Do not remove original dressing; we will remove this at first postop visit in 1 week. Only remove dressing if integrity is in question. ?No immersing wound in water; showering okay; light scrub with your hand and body soap, rinse, dab dry ?Sutures are under the skin, will dissolve; allow surgical glue to come off naturally; do not scrub the wound or apply ointments/lotions ?Call our office with any redness that streaks, excessive drainage from the wound, or wound gapping. Ice/Elevate: ?Ice as needed for swelling and discomfort (cryocuff or ice pack); elevate frequently above the heart PROSPER socks: ?Wear for 1 month, remove for 1 hour 3 times per day ?These are frustrating to take on/off, but are important for blood clot prevention for 1 month after surgery Blood Clot Prevention (DVT): ?Medication: 81 mg aspirin by mouth twice daily Driving: ?Do not drive while taking narcotic pain medication ?Anticipate 4-6 weeks no driving if operative leg is driving leg Dental: ?No elective dental work for 6 months post-op. If there is an urgent/emergent dental need, contact our office for an antibiotic prescription. Smoking/Alcohol: ?Do not smoke; do no drink alcohol especially when taking postoperative oral narcotic medication Seek Care from you Primary Care Provider if you experience the following issues in the postoperative phase and beyond: ?Bacterial infections such as: pneumonia, bacterial skin infection (cellulitis), UTI, high fever, chills unrelated to the operative body part - call your primary care physician urgently for treatment in hopes to protect your health and the metal implant. Referrals: ?PT, OT per patient preference - evaluate treat total right knee arthroplasty protocol (the training, ROM, ADLs, knee-high Prosper socks) Follow up: ?Ortho surgeon follow-up in 6 weeks; repeat radiographs three views right knee ?[facility] visit in 1 week *If there are any acute concerns regarding your surgery, please call our orthopedic clinic ([phone]) Discharge Diet: Regular Patient Instructions: Acetaminophen (By mouth), Aspirin (By mouth), Oxycodone, Rapid Release (By mouth), Celecoxib (By mouth), Senna (By mouth) (Senna, Senna-lax), Knee Replacement (DC) Forms: Work/Release Restrictions Follow-up: [facility] [Other] - 01/15/22 1:45 pm Shabbir Hastings MD [Primary Care Provider] - Maurice Downey PA-C [Physician Automatic Log Cut Off Sawyer] - 01/19/22 1:00 pm ([facility]) Discharge Orders: Discharge Order (Routine); Ordered 01/14/22 Ordered By: Olivia Kenney
== END 2022-01-14 11:28 | disposition home or self-care (01) ==
LOC: OR 10:59 → MEDSURG 11:35
PROVIDERS: PCP Family Medicine; Visit Provider Orthopaedic Surgery Sports Medicine
PROC: (CPT 27447; principal; 2022-01-13 14:00)
DX: M17.11 Unilateral primary osteoarthritis, right knee (principal); I25.10 Atherosclerotic heart disease of native coronary artery without angina pectoris; E78.5 Hyperlipidemia, unspecified; I10 Essential (primary) hypertension
CPT/HCPCS: 27447; 1402; 36415; 51798; 64447; 64454; 73560; 76942; 80048; 85025; 85610; 97110; 97116; 97161; 97165; 97530; 97535; 99100; A9270; C1776; J0690; J1100; J2250; J2370; J2405; J2704; J2795; J3010; J7120

== ENCOUNTER 2022-02-04 11:15 | Outpatient (RCR) | payer MEDICARE, SELFPAY ==
--- NOTE | 2022-01-15 15:01 | PT.OPDNX ---
PT [place] Outpatient Daily Note PT [facility] Outpatient Daily Note Start: 01/06/22 13:26 Freq: Status: Active Protocol: Document 01/15/22 14:52 ENM (Rec: 01/15/22 14:59 ENM [id number]) E-Signed By Allison Selby DPT PT OP Daily Progress Note Visit Information Note Type Re-Evaluation Visit Number 2 Insurance Information Recert Due Date 04/09/22 Insurance Name Medicare B,[employer] Medical Diagnosis R TKA Treating Diagnosis right knee pain, decreased ROM , decreased knee strength, impaired transfers, impaired gait, impaired balance Referring MD Cabello Subjective Subjective Patient states that he got home yesterday and he had no difficulty getting into the house. Patient states that he is sore and more stiff today. He has been taking pain medication and icing to help with the pains. He has been able to walk around and get in /out of the shower putting weight on the leg but he is hobbling to do so. He can do the steps to get in/out of the house but the worse is getting in/out of the tub. Hasn't had too much difficulty having to bring the leg in/ out of bed. His goal is to be back to being to move around with difficulty and maybe get back into walking. Pain Comments moderate pain easing: medication, ice aggravating: bending the knee Home Exercise Home Exercise Comments pre op exercises Objective Other/Pertinent Objective ROM: Knee ROM R 0-8-67 strength: fair-good quad set SLR able to perform with CGA gait/balance: Patient ambulating with 2WW demonstrating antalgic gait pattern, decreased R knee ext, decreased R stance time and flexed posture. Step to pattern initially progressing to step through palpation/joint mobility: no significant tenderness to palpation along distal quad or ITB swelling/observation: moderate swelling at right knee joint, bandaging in place mild redness medial joint line and previous wound on medial leg still present and healing. No significant bruising along the knee Joint measures superior patella 47 cm mid patella 45 cm Other: performing sit to stands with RLE ext able to lift RLE into bed without physical assist Patient Instructed in Risks/Benefits Yes Therapeutic Exercise Therapeutic Exercise Minutes (minutes) 14 Therapeutic Exercise: To Restore quad set 10x5s hold, TC for Functional Status quad engagement SAQ 10x3s holds, CGA to perform knee ext stretch with small bolster under heel x1 min heel slides with strap assist Reviewed importance of progressing ROM with HEP as well as consistency of icing to help with symptoms Manual Therapy Techniques Manual Therapy Minutes (minutes) 5 Manual Therapy Techniques skilled edema massage to help with swelling, pt RLE elevated on bolster. Performed to anterior mid-distal thigh and posterior knee Gait & Stair Training Gait Training/Stairs Minutes (minutes) 5 Gait & Stair Training Comments Patient ambulating 60'x2 with use of 2WW. Cued throughout for quad contraction with stepping onto RLE and maintaining walker close with upright posture . Patient able to implement cues and maintain throughout ambulation bout Treatment Minutes Untimed Code Treatment Minutes 19 Timed Code Treatment Minutes 24 Total Treatment Time 43 Billing Units Therapeutic Exercise Units 2 Re-Evaluation Units 1 Assessment/Impression Assessment/Impression Patient returns to PT for evaluation after TKA performed by Dr. Cabello on 01/13/22. Patient has been able to navigate his home environment without difficulty using 2WW. His primary complaint is of knee pain and stiffness. He has the most difficulty with being able to bend his knee and getting in/out of the tub. Patients goal for therapy is to get back to walking without use of an AD. Upon assessment patient presents with decreased knee ROM, impaired gait, impaired transfers, decreased quad strength and swelling. Impairments consistent with s/ p TKA. Patient would greatly benefit from skilled PT to address impairments stated above in order to perform all functional and recreational activities without significant difficulty or discomfort. Plan of Care Physical Therapy Goals In 4-5 weeks: 1. Patient will improve knee ROM to > 100 for improved ease of STS transfers 2. Patient will be able to stand/walk up to 10 minutes with or without use of AD or report of increased knee pain 3. Patient will perform x5 SLR with improved form and strength to improve supine<> sit transfer In 8-10 weeks: 1. Patient will improve knee ROM to >120 in order to comfortably navigate stairs for household and community navigation 2. Patient will ambulate with improved mechanics and no pain without AD >150' for improved community mobility 3. Patient will return to full household duties with less than 2/10 demonstrating improved activity tolerance 4. Patient will be able to hold R SLS for at least 10s to demonstrate improvements in balance and stability Daily Plan of Care Continue per POC Daily Plan of Care Comments 1-2x a week for 5 weeks, 1x a week for 4-5 weeks Recertification Information Patient's H.I.C.N.# # I Certify That I Have Established All Therapy Services/Plan Physician Signature Shows Agreement Dates & Medical Necessity Physician Comment/Change Comment or Changes Physician Signature & Date Please Sign/Date Here Physician NPI Number #
== END 2022-02-08 10:09 | disposition home or self-care (01) ==
PROVIDERS: PCP Family Medicine; Visit Provider Orthopaedic Surgery Sports Medicine
DX: M25.561 Pain in right knee (principal); R26.9 Unspecified abnormalities of gait and mobility; Z51.89 Encounter for other specified aftercare
CPT/HCPCS: 97110; 97140; 97164